=== PATIENT | male | born 1960 | race Caucasian/White ===

== ENCOUNTER 2016-07-25 17:30 | Emergency (ER) | payer OTHER ==
[~2016-07-25 17:30] MED LIST: CIPRO PO; FLAGYL PO; LISINOPRIL20 MG PO; NO MEDICATIONS
== END 2016-07-25 17:33 | disposition home or self-care (01) ==
LOC: CFTX 17:30
DX: M10.071 Idiopathic gout, right ankle and foot (principal); I10 Essential (primary) hypertension
CPT/HCPCS: 96372; 99283; J1885

== ENCOUNTER 2016-08-13 12:27 | Inpatient (IN) | payer OTHER ==
--- NOTE | ~2016-08-13 | CO ---
Unit #: [id number] #: [id number] Patient: JONATHAN BARROW [id number] [address] [address] [id number] Yolette MR#: [id number] NAME: JONATHAN BARROW ROOM: 569 Age: 56 Sex: M Admission Date: 08/13/2016 : 1960 Attending Physician: Hortencia Casey M.D. CONSULTATION REPORT CHIEF COMPLAINT Left knee pain. HISTORY OF PRESENT ILLNESS Mr. Barrow is a 56-year-old gentleman with a history of polysubstance abuse, who reports a 6 to 8 month history of left knee pain. He states he has pain with an attempted weightbearing and is unable to walk and he attempted weightbearing on the affected extremity causes pain along the medial aspect of the knee joint. Additionally, he does have shortness of breath with ambulation and exertional dyspnea. He has been admitted for positive troponins and non-ST elevation [place]. During his workup, he underwent an ultrasound to evaluate the left lower extremity for DVT, which was negative. I identified a Eastman cyst and Orthopedic consultation was requested. The patient is currently examined supine in his hospital bed. He is comfortable. He reports pain with ambulation, but no pain at rest. He is concerned this may have been gout. He has no knee pain with bicycling, which he states he does nearly daily. PAST MEDICAL HISTORY Polysubstance abuse, hypertension, coronary artery disease, hepatic steatosis, diverticulitis. PAST SURGICAL HISTORY None. HOME MEDICATIONS None. ALLERGIES No known drug allergies. SOCIAL HISTORY The patient uses methamphetamine and marijuana. Denies alcohol or tobacco use. He is not working. FAMILY HISTORY Noncontributory to the current illness. REVIEW OF SYSTEMS Ten systems reviewed and negative except with regard to musculoskeletal complaints and exertional dyspnea as noted above. Unit #: [id number] #: [id number] Patient: JONATHAN BARROW PHYSICAL EXAMINATION GENERAL APPEARANCE: A 56-year-old gentleman appearing older than stated age, in no acute distress. PSYCHIATRIC: Awake, alert, and oriented to person, place, time, and situation with normal range of mood and affect. CARDIAC: Regular rate and rhythm. PULMONARY: No increased work of breathing, symmetric chest rise. ABDOMEN: Nondistended. NEUROLOGIC: Intact motor and sensory function throughout. Normal L2 through S1 in the left lower extremity. VASCULAR: His foot is warm and well perfused. LYMPHATIC: There was no lymphedema. SKIN: There is no overlying erythema, contusion, or soft tissue swelling. MUSCULOSKELETAL: He has no knee joint effusion. He has full passive range of motion of the left knee. He has mild tenderness along with pes anserine bursa in medial joint line. DIAGNOSTIC STUDIES IMAGING STUDIES: 1. Plain film radiographs reviewed of the left knee demonstrate mild medial compartment joint osteoarthritis. 2. Ultrasound of the left lower extremity is reviewed demonstrates a Eastman cyst. IMPRESSION A 56-year-old gentleman with left knee pain secondary to osteoarthritis and a Eastman cyst and history of polysubstance abuse and current admission for non-ST elevation myocardial infarction. PLAN 1. Given the above issues, he has more pressing medical issues, currently including pending heart catheterization tomorrow. In the current time, there is no indication for any orthopedic intervention. He may follow up as an outpatient for corticosteroid injection into the left knee. 2. I have discussed with him that his Eastman cyst is likely related to his degenerative arthritis in his left knee. He is not going to be a candidate for management with NSAIDs given his current cardiac issues. 3. Follow up as an outpatient for possible corticosteroid injection postdischarge. Dictated by... Jim Paz M.D. ROME/maria g TD: 08/15/2016 01:33 JOB #: [id number] Unit #: [id number] #: [id number] Patient: JONATHAN BARROW CONSULTATION REPORT Page 1 of 1 X Jim Paz MD X CONSULTATION REPORT
--- NOTE | ~2016-08-13 | CO ---
Unit #: [id number] #: [id number] Patient: JONATHAN BARROW [id number] [address] [address] [id number] I MR#: [id number] NAME: JONATHAN BARROW ROOM: 569 Age: 56 Sex: M Admission Date: 08/13/2016 : 1960 Attending Physician: Hortencia Casey M.D. CONSULTATION REPORT REASON FOR CONSULTATION Chest pain. HISTORY OF PRESENT ILLNESS This is a 56-year-old white male who came to the emergency room because of a gout flare to his left great toe. The patient had a complaint of exertional dyspnea that has been ongoing for "a while." His dyspnea occurs when going up flights of stairs. He usually can ride his bicycle more than 15 miles. However, lately he has been unable to ride his bicycle more than 100 feet at a time because of dyspnea. He reports no chest pain, palpitations, or leg edema. The patient was admitted to this facility in 2014. He had a troponin that was elevated at 0.3. He was scheduled for a cardiac catheterization; however, on the day of the cardiac catheterization he left before it was done. In the emergency room, the patient was hypertensive with blood pressure of 187/100 mmHg. He states he has not been on any medications. He also complains of left knee pain and having difficulty with walking because of it. His troponin was elevated at 0.13. Electrocardiogram shows lateral ischemia. PAST MEDICAL HISTORY 1. Hypertension. 2. Diverticulosis. 3. Left lower lobe nodule. 4. Polysubstance abuse with methamphetamine and marijuana. 5. Former smoker. PAST SURGICAL HISTORY Back surgery. SOCIAL HISTORY The patient quit smoking more than four years ago. He uses marijuana on occasion. He also used methamphetamine one month ago. FAMILY HISTORY Negative for coronary artery disease. ALLERGIES No known allergies. HOME MEDICATIONS No current medications. Unit #: [id number] #: [id number] Patient: JONATHAN BARROW REVIEW OF SYSTEMS CONSTITUTIONAL: Negative for fever or chills. Has no weight gain or weight loss. HEENT: No headache, hearing or vision changes, or difficulty with swallowing. No dizziness. CARDIOVASCULAR: Has chest pain as described in the History of Present Illness. Denies palpitations. No paroxysmal nocturnal dyspnea or orthopnea. No syncope or near syncope. RESPIRATORY: Positive for exertional dyspnea. No cough or hemoptysis. GASTROINTESTINAL: No abdominal pain, nausea, or vomiting. No constipation or melena. EXTREMITIES: Negative for lower extremity edema. Complains of left knee pain. PHYSICAL EXAMINATION VITAL SIGNS: Blood pressure 171/101, heart rate 71, and temperature 97.5. GENERAL: This is a 56-year-old, obese, white male who is in no acute distress. NEUROLOGIC: He is awake, alert, and oriented. There are no focal weaknesses. NECK: Trachea is midline. No thyromegaly or lymphadenopathy. No jugular venous distention. HEART: S1 and S2 heart sounds are normal. No murmurs, rubs, or clicks. Regular rate and rhythm. LUNGS: Diminished breath sounds in both lungs bases. No rales or rhonchi. ABDOMEN: Soft and obese with bowel sounds present. No organomegaly. EXTREMITIES: Without leg edema. SKIN: Warm and dry. DIAGNOSTIC STUDIES LABORATORY: Hemoglobin 13.4, hematocrit 40.8, platelet count 152,000, and white count 10.6. Sodium 138, potassium 3.5, BUN 18, creatinine 0.9, and glucose 135. Troponin 0.13. Urine drug screen positive for marijuana and amphetamines. IMAGING: Chest x-ray shows no active disease. CARDIOLOGY: EKG shows normal sinus rhythm with a rate of 90 beats per minute with lateral wall ischemia. IMPRESSION 1. Acute coronary syndrome with exertional dyspnea. 2. Left knee pain of questionable etiology. 3. Probable coronary artery disease. 4. Uncontrolled hypertension. 5. Hypertensive heart disease. 6. Substance abuse with methamphetamine. PLAN 1. Cardiology was consulted for elevated troponin. The patient's dyspnea is most likely secondary to ischemic heart disease. Troponin is elevated but nondiagnostic. He has been advised to undergo cardiac catheterization to evaluate his coronary anatomy. It was explained in detail to the patient the risks and benefits. He is agreeable. 2. Will start on MARY JANE inhibitor, beta hitesh, aspirin, Lovenox, and nitrates. 3. Control blood pressure also with diuretics. Unit #: [id number] #: [id number] Patient: JONATHAN BARROW 4. Repeat EKG and troponin. 5. A 2D echocardiogram will be obtained to evaluate left ventricular systolic function. 6. Further recommendations pending the results of the cardiac catheterization. Thank you for allowing us to assist with the patient's care. Dictated by... Alonzo Calvin A.P.R.N. for Elmer Castillo/keyon TD: 08/15/2016 22:04 JOB #: [id number] CONSULTATION REPORT Page 1 of 1 X Alonzo Calvin APRN X CONSULTATION REPORT
--- NOTE | ~2016-08-13 | HP ---
Unit #: [id number] #: [id number] Patient: JONATHAN BARROW [id number] [address] [address] [id number] I MR#: [id number] NAME: JONATHAN BARROW ROOM: 09618 Age: 56 Sex: M Admission Date: 08/13/2016 : 1960 Attending Physician: Opal Jack M.D. Primary Care Physician: No Primary Care Physician HISTORY AND PHYSICAL CHIEF COMPLAINT Left knee and foot pain. HISTORY OF PRESENT ILLNESS The patient is a 56-year-old male with history of hypertension and does not follow regularly with medical doctors, presented to the emergency room complaining of the left knee and foot pain. The patient stated that the patient has been having pain for the last five months and presented to the emergency room concerning for the flareup of the gout. During ER triage, the patient was also complaining of exertional dyspnea. The patient was found to have uncontrolled blood pressure with a blood pressure of 117/110. The patient had a positive troponin with abnormal EKG. The patient has been admitted for the above reasons. The patient stated the patient has been having the exertional dyspnea for the last few months and is being admitted for the cardiac catheterization. The patient denies any fever, chills, trauma, nausea, vomiting, palpitations or dizziness. PAST MEDICAL HISTORY History of diverticulitis, hypertension, left lower lung nodules, hepatic steatosis. PAST SURGICAL HISTORY Back surgery. SOCIAL HISTORY The patient denies the use of tobacco or alcohol. He stated he has used meth since the age of 13 to one month ago. FAMILY HISTORY His father with alcoholism. ALLERGIES No known drug allergies. HOME MEDICATIONS None. REVIEW OF SYMPTOMS A 14-point review of symptoms performed and only pertinent positive findings as described above. Remaining are negative. PHYSICAL EXAMINATION GENERAL APPEARANCE: The patient is lying on a bed not in acute distress. VITAL SIGNS: Temperature 98.1. Pulse 103. Respiratory rate 16. Blood Unit #: [id number] #: [id number] Patient: JONATHAN BARROW pressure 177/110. Sating 99% at room air. HEENT: Head: Atraumatic, normocephalic. Pupils equal, round and reacting to light and accommodation. Extraocular movements are intact. Dry mucous membrane. NECK: Supple. No JVD. LUNGS: Decreased air entry at the bases. HEART: Regular rate and rhythm. ABDOMEN: Soft. Positive bowel sounds. EXTREMITIES: No cyanosis. No clubbing. The patient on the left knee and stated the pain at the back of the knee. NEUROLOGIC: Alert, awake, oriented. No gross focal motor deficit. DIAGNOSTIC STUDIES LABORATORY: Glucose 135, BUN 18, creatinine 0.9, sodium 138, potassium 3.5, chloride 107, bicarb 22, calcium 8.9, uric acid 8.9, calcium 8.4, magnesium 1.8, total protein 7.2, albumin 3.8, AST 24, ALT 25, alkaline phosphatase 84. INR one. Troponin 0.13. WBC 10.6, hemoglobin 13.4, hematocrit 40.8, platelets 152. Urine tox is positive for amphetamines and marijuana. UA shows trace leukocyte esterase. IMAGING: Chest x-ray is negative. The venous Doppler of the left lower extremity shows no superficial or deep vein thrombosis. Positive for Eastman's cyst and not ruptured. CARDIOVASCULAR: EKG shows normal sinus rhythm with a rate of 90 beats per minute and minimal voltage criteria for LVH and ST-T abnormalities in the lateral leads concerning for lateral ischemia. ASSESSMENT 1. Non-ST elevation [place]. 2. Uncontrolled blood pressure. 3. Left Eastman's cyst. 4. Drug overdose with amphetamines and marijuana. PLAN To admit the patient to the inpatient with telemetry. Continue with the serial troponins and Cardiology consult has been placed and recommended for the cardiac cath on Monday. Continue with aspirin, Lovenox, MARY JANE inhibitors, metoprolol, hydrochlorothiazide and nitro paste. Repeat the labs again in the morning and further recommendations to follow. Dictated by Elmer Choi TD: 08/13/2016 18:49 JOB #: [id number] Unit #: [id number] #: [id number] Patient: JONATHAN BARROW HISTORY AND PHYSICAL Page 1 of 1 X X HISTORY AND PHYSICAL
--- NOTE | ~2016-08-13 | EKG ---
PATIENT: JONATHAN BARROW UNIT #: [id number] Ventricular Rate: 90 BPM Atrial Rate: 90 BPM P-R Interval: 156 ms QRS Duration: 96 ms Q-T Interval: 386 ms QTC Calculation(Bezet): 472 ms P [place]: 4 degrees Calculated R [place]: -28 degrees Calculated T [place]: 78 degrees Diagnosis Line: Normal sinus rhythm Diagnosis Line: Minimal voltage criteria for LVH, may be normal Diagnosis Line: variant Diagnosis Line: ST and T wave abnormality, consider lateral ischemia Diagnosis Line: Abnormal ECG Diagnosis Line: When compared with ECG of 06-APR-2015 05:18, Diagnosis Line: No significant change was found Diagnosis Line: Confirmed by GUZMAN MARTINEZ MD ([id number]) on 08/15/2016 Diagnosis Line: 10:53:44 PM INTERPRETING MD: MICHLELE LI
--- NOTE | ~2016-08-13 | EKG ---
PATIENT: JONATHAN BARROW UNIT #: [id number] Ventricular Rate: 70 BPM Atrial Rate: 70 BPM P-R Interval: 138 ms QRS Duration: 98 ms Q-T Interval: 438 ms QTC Calculation(Bezet): 473 ms P [place]: 8 degrees Calculated R [place]: 2 degrees Calculated T [place]: 76 degrees Diagnosis Line: Normal sinus rhythm Diagnosis Line: Nonspecific T wave abnormality Diagnosis Line: Prolonged QT Diagnosis Line: Abnormal ECG Diagnosis Line: When compared with ECG of 14-AUG-2016 05:33, Diagnosis Line: Nonspecific T wave abnormality has replaced Diagnosis Line: inverted T waves in Lateral leads Diagnosis Line: Confirmed by ROSEANNE SINGH MD ([id number]) on 08/16/2016 Diagnosis Line: 10:23:57 PM INTERPRETING MD: FRANCISCO LI
--- NOTE | ~2016-08-13 | DS ---
Unit #: [id number] #: [id number] Patient: JONATHAN BARROW [id number] [address] [address] [id number] I MR#: [id number] NAME: JONATHAN BARROW ROOM: 569 Age: 56 Sex: M Admission Date: 08/13/2016 : 1960 Discharge Date: Attending Physician: Hortencia Casey M.D. Primary Care Physician: No Primary Care Physician DISCHARGE SUMMARY DISCHARGE DIAGNOSES 1. Chest pain with acute coronary syndrome. The patient had cardiac catheterization, coronaries normal. 2. Acute systolic heart failure, ejection fraction 45% with shortness of breath. 3. Hypertension, uncontrolled. 4. Polysubstance abuse with amphetamines and marijuana, advised to quit. 5. Left lower lobe nodule, needs followup outpatient. 6. Left knee Eastman's cyst. The patient will follow orthopedics as an outpatient. 7. Left foot gout, continue with Indomethacin. 8. Hyperlipidemia. CONSULTATIONS 1. Dr. Jim Paz. 2. Dr. Tanner. PROCEDURE Patient had cardiac cath which shows ejection fraction 45%, normal coronaries. ALLERGIES Hydralazine. DISCHARGE MEDICATIONS 1. Metoprolol 50 p.o. b.i.d. 2. Lisinopril 40 daily. 3. Aspirin 81 daily. 4. Norvasc 5 daily. 5. Nitroglycerin p.r.n. chest pain. 6. Lipitor 20 daily. 7. Indomethacin 75 mg p.o. daily. HOSPITALIZATION COURSE A 56 year old admitted because of chest pain and shortness of breath. Chest pain: Likely acute coronary syndrome. Cardiac cath is negative for any obstruction. Normal coronaries. Continue with aspirin, lisinopril, and beta hitesh. Shortness of breath: Likely acute systolic heart failure. Ejection fraction 45%. Compensated. Continue with lisinopril. Unit #: [id number] #: [id number] Patient: JONATHAN BARROW Left lower lobe nodule: The patient needs outpatient followup with his family physician. Polysubstance abuse: Advised to quit. Hypertension: Uncontrolled. Added lisinopril, metoprolol, and Norvasc. Prescriptions given. DISPOSITION Patient discharged home. FOLLOWUP 1. Follow with family physician in one week time. 2. Follow with Dr. Tanner in three to four weeks' time. Discharge time taken is 35 minutes. Dictated by... Elmer Lange TD: 08/16/2016 12:32 JOB #: [id number] DISCHARGE SUMMARY Page 1 of 1 X Hortencia Casey MD X DISCHARGE SUMMARY
--- NOTE | ~2016-08-13 | US85 ---
[facility] A Service of [facility] RADIOLOGY TEXT RESULTS PATIENT: JONATHAN BARROW LOCATION: [facility] 569-01 : 56 UNIT #: [id number] AGE: [address]: Hortencia Casey MD SEX: M ORDER DR: [id number] [facility] [address] [place], [place] [address] [id number] I MR#: [id number] Acc #: [id number] NAME: JONATHAN BARROW : 1960 SEX: M STUDY DATE/TIME: 08/13/2016 11:49 UNIT: [facility] ROOM: [facility] STUDY DESCRIPTION: US LE Veins Unilat or Ltd Stdy Attending Physician: Opal Jack M.D. Ordering Physician: Laura Calhoun M.D. Primary Care Physician: No Primary Care Physician MEDICAL IMAGING REPORT This report is preliminary unless electronic signature is present EXAM Left lower extremity duplex Doppler venous ultrasound. DATE OF EXAM 08/13/2016 COMPARISON None. INDICATIONS 56-year-old male with left leg pain and inability to walk on the leg for 6-months. FINDINGS Color flow is demonstrated in the left anterior tibial vein. There is color flow in the left posterior tibial and peroneal veins and these vessels are fully compressible. The left common femoral, greater saphenous, superficial femoral, proximal deep femoral, and popliteal veins are all fully compressible with normal color flow, waveform and flow direction. In the popliteal fossa, there is a fluid collection which measures approximately 1.3 cm x 1.4 cm x approximately 4 cm which communicates with the posterior knee joint. This is most consistent with a Eastman's cyst. There is no evidence of definite rupture on the current exam. IMPRESSION 1. Negative for deep or superficial venous thrombosis in the left lower extremity. 2. A 1.3 cm x 1.4 cm x 4 cm fluid collection in the popliteal fossa which communicates with the knee joint most in keeping with a Eastman's cyst. No evidence of rupture on this exam. [facility] A Service of [facility] RADIOLOGY TEXT RESULTS PATIENT: JONATHAN BARROW LOCATION: [facility] 569-01 : 56 UNIT #: [id number] AGE: [address]: Hortencia Casey MD SEX: M ORDER DR: Dictated by... Kirill Jamison M.D. THIS IS AN ELECTRONICALLY VERIFIED REPORT Kirill Jamison M.D. at 08/16/2016 12:58 AM SCOT/sandip TD: 08/13/2016 23:05 JOB #: [id number] MEDICAL IMAGING REPORT Page 1 of 1 COPY
--- NOTE | ~2016-08-13 | CR72 ---
[facility] A Service of [facility] RADIOLOGY TEXT RESULTS PATIENT: JONATHAN BARROW LOCATION: [facility] 569-01 : 56 UNIT #: [id number] AGE: [address]: Hortencia Casey MD SEX: M ORDER DR: [id number] [facility] [address] [facility] [place], [place] [address] [id number] I MR#: [id number] Acc #: [id number] NAME: JONATHAN BARROW : 1960 SEX: M STUDY DATE/TIME: 08/13/2016 11:10 UNIT: [facility] ROOM: [facility] STUDY DESCRIPTION: CR Chest Single View Portable Attending Physician: Opal Jack M.D. Ordering Physician: Laura Calhoun M.D. Primary Care Physician: No Primary Care Physician MEDICAL IMAGING REPORT This report is preliminary unless electronic signature is present EXAM Portable AP view of the chest COMPARISON April 05, 2015 June 22, 2008 INDICATIONS 56-year-old male with dyspnea with activity for 1 year. FINDINGS There may be mild cardiomegaly. Alternatively this could be artifactually accentuated by low lung volumes and portable technique. There are left hilar calcified lymph nodes. There is slightly increased band-like opacities in the right lower lobe which could reflect atelectasis or developing pneumonia. The left lung is now clear. No significant pleural effusion. No pneumothorax. IMPRESSION 1. Minimal opacities in the right lung base which appears slightly more prominent than on the most recent comparison. These are favored to be stable as compared to 2009 and most consistent with normal bronchovascular structures and/or minimal atelectasis. Clinical correlation is recommended. No pleural effusion. 2. Questionable mild cardiomegaly. No evidence of pulmonary edema. Dictated by... Kirill Jamison M.D. THIS IS AN ELECTRONICALLY VERIFIED REPORT Kirill Jamison M.D. at 08/16/2016 12:55 AM SCOT/craig TD: 08/13/2016 22:33 [facility] A Service of [facility] RADIOLOGY TEXT RESULTS PATIENT: JONATHAN BARROW LOCATION: [facility] 569-01 : 56 UNIT #: [id number] AGE: [address]: Hortencia Casey MD SEX: M ORDER DR: JOB #: [id number] MEDICAL IMAGING REPORT Page 1 of 1 COPY
--- NOTE | ~2016-08-13 | CR169 ---
[facility] A Service of [facility] RADIOLOGY TEXT RESULTS PATIENT: JONATHAN BARROW LOCATION: [facility] 569 : 56 UNIT #: [id number] AGE: [address]: Hortencia Casey MD SEX: M ORDER DR: [id number] [place] [id number] [facility]. [place], [place] [address] [id number] I MR#: [id number] Acc #: [id number] NAME: JONATHAN BARROW : 1960 SEX: M STUDY DATE/TIME: 08/13/2016 11:11 UNIT: [facility] ROOM: [facility] STUDY DESCRIPTION: CR Knee 2 Views Lt Attending Physician: Opal Jack M.D. Ordering Physician: Laura Calhoun M.D. Primary Care Physician: No Primary Care Physician MEDICAL IMAGING REPORT This report is preliminary unless electronic signature is present EXAM Left knee, 2 views COMPARISON None INDICATIONS A 48-year-old male with left knee pain for 2 weeks. History of gout. FINDINGS There is mild osteophyte formation at the articulation of the fibular head and proximal tibia. There is no suprapatellar effusion. No osseous erosion. Bones are anatomically aligned. No acute fracture. IMPRESSION 1. Minimal osteophyte formation at the junction of the fibular head and the lateral tibial metaphysis of uncertain clinical significance. 2. Prepatellar soft tissue thickening, uncertain acuity. This could represent post-traumatic edema or cellulitis or possibly a bursitis. Not mentioned specifically in the body of the report, there is questionable small suprapatellar effusion. Dictated by... Kirill Jamison M.D. THIS IS AN ELECTRONICALLY VERIFIED REPORT Kirill Jamison M.D. at 08/16/2016 12:56 AM Silvina TD: 08/13/2016 22:29 [facility] A Service [facility] RADIOLOGY TEXT RESULTS PATIENT: JONATHAN BARROW LOCATION: [facility] 569 : 56 UNIT #: [id number] AGE: [address]: Hortencia Casey MD SEX: M ORDER DR: JOB #: [id number] MEDICAL IMAGING REPORT Page 1 of 1 COPY
--- NOTE | ~2016-08-13 | EKG ---
PATIENT: JONATHAN BARROW UNIT #: [id number] Ventricular Rate: 71 BPM Atrial Rate: 71 BPM P-R Interval: 140 ms QRS Duration: 94 ms Q-T Interval: 426 ms QTC Calculation(Bezet): 462 ms P [place]: 11 degrees Calculated R [place]: -26 degrees Calculated T [place]: 124 degrees Diagnosis Line: Normal sinus rhythm Diagnosis Line: Left ventricular hypertrophy with repolarization Diagnosis Line: abnormality Diagnosis Line: Abnormal ECG Diagnosis Line: When compared with ECG of 13-AUG-2016 11:16, Diagnosis Line: (unconfirmed) Diagnosis Line: T wave inversion more evident in Lateral leads Diagnosis Line: Confirmed by ROSEANNE SINGH MD ([id number]) on 08/14/2016 Diagnosis Line: 7:32:06 AM INTERPRETING MD: FRANCISCO LI
--- NOTE | ~2016-08-13 | EKG ---
PATIENT: JONATHAN BARROW UNIT #: [id number] Ventricular Rate: 69 BPM Atrial Rate: 69 BPM P-R Interval: 148 ms QRS Duration: 94 ms Q-T Interval: 412 ms QTC Calculation(Bezet): 441 ms P [place]: 0 degrees Calculated R [place]: -32 degrees Calculated T [place]: 125 degrees Diagnosis Line: Normal sinus rhythm Diagnosis Line: Left axis deviation Diagnosis Line: T wave abnormality, consider lateral ischemia Diagnosis Line: Abnormal ECG Diagnosis Line: When compared with ECG of 13-AUG-2016 19:14, Diagnosis Line: (unconfirmed) Diagnosis Line: T wave inversion more evident in Lateral leads Diagnosis Line: Confirmed by NEIL ARAUJO MD ([id number]) on Diagnosis Line: 08/14/2016 2:20:00 PM INTERPRETING MD: QUIN
[2016-08-13 11:19] LABS: BASOPHIL# 0.1 X10e3 (0-0.3); BASOPHIL% 0.5 % (0-2.5); EOSINOPHIL# 0.2 X10e3 (0-0.7); HEMATOCRIT 40.8 % (38.0-50.0); HEMOGLOBIN 13.4 gm/dL (13.0-16.0); LYMPHOCYTE# 2.3 X10e3 (1.0-3.5); LYMPHOCYTE% 21.8 % (17.0-45.0); MEAN CELL VOLUME 84.2 FL (83-96); MEAN CORPUSCULAR HEMOGLOBIN 27.6 PG (28-34); MEAN CORPUSCULAR HGB CONC 32.7 g/dL (30-36); MEAN PLATELET VOLUME 11.1 FL (6.5-11.5); MONOCYTE# 1.2 X10e3 (0-1.0); MONOCYTE% 11.7 % (3.0-12.0); NEUTROPHIL# 6.8 X10e3 (1.5-7.1); PLATELET COUNT 152 X10e3 (140-420); RED BLOOD COUNT 4.85 X10e (3.90-5.60); RED CELL DISTRIBUTION WIDTH 14.6 % (11.0-15.5); WHITE BLOOD COUNT 10.6 X10e3 (4.0-10.5)
[2016-08-13 11:21] LABS: DIFF IND NO
[2016-08-13 11:36] LABS: PARTIAL THROMBOPLASTIN TIME 26.8 SECONDS (23.5-31.3); PROTHROMBIN TIME (PATIENT) 10.8 SECONDS (9.6-11.5)
[2016-08-13 11:42] LABS: ALBUMIN SERUM 3.8 g/dL (3.5-5.0); BILIRUBIN, DIRECT 0.1 mg/dL (0.0-0.2); BILIRUBIN,INDIRECT 0.2 mg/dL (0.0-0.9); BILIRUBIN,TOTAL 0.3 mg/dL (0.2-2.0); CALCIUM SERUM 8.4 mg/dL (8.4-10.2); CREATININE SERUM 0.9 mg/dL (0.6-1.4); GLOM FILT RATE Estimated 93.8 mL/min (>60); POTASSIUM 3.5 mmol/L (3.5-5.1); PROTEIN TOTAL SERUM 7.2 g/dL (6.0-8.3)
[2016-08-13 11:43] LABS: POC - CKMB 2.6 ng/mL (0.0-7.9); POC - TROPONIN 0.14 ng/mL (<=0.05)
[2016-08-13 13:31] LABS: POC - CKMB 2.4 ng/mL (0.0-7.9); POC - TROPONIN 0.13 ng/mL (<=0.05)
[2016-08-13 14:29] LABS: URINE SOURCE CLEAN CATCH
[2016-08-13 14:37] LABS: URINE APPEARANCE CLEAR; URINE BILIRUBIN NEG (NEG); URINE BLOOD NEG (NEG); URINE COLOR YELLOW; URINE GLUCOSE NEG (NEG); URINE KETONE NEG (NEG); URINE LEUKOCYTE ESTERASE TRACE (NEG); URINE NITRATE NEG (NEG); URINE PROTEIN NEG (NEG); URINE SPECIFIC GRAVITY 1.027 (1.003-1.035)
[2016-08-13 14:42] LABS: URBCS1 AUWI 0-2 /[HPF] (0-2); URINE BACTERIA AUWI NEG (NEGATIVE); URINE SQUAMOUS EPITHELIAL CELL NONE SEEN /[HPF]; UWBCS1 AUWI 0-2 (0-5)
[2016-08-13 14:47] LABS: CULTURE INDICATED? NO
[2016-08-13 14:48] LABS: AMPHETAMINE POS (NEG); BARBITURATES NEG (NEG); BENZODIAZEPINES NEG (NEG); COCAINE NEG (NEG); MARIJUANA POS (NEG); OPIATES NEG (NEG); TRICYCLIC ANTIDEPRESSANTS NEG (NEG); U METHADONE NEG (NEG)
[2016-08-13 20:47] LABS: %MB 3.1 % (0.0-4.0); MB 3.6 ng/ml
[2016-08-14 05:33] LABS: %MB 3.7 % (0.0-4.0); MB 3.3 ng/ml
[2016-08-14 06:31] LABS: BASOPHIL% 0.3 % (0-2.5); EOSINOPHIL# 0.3 X10e3 (0-0.7); EOSINOPHIL% 3.4 % (0.0-7.0); HEMATOCRIT 41.1 % (38.0-50.0); HEMOGLOBIN 13.4 gm/dL (13.0-16.0); LYMPHOCYTE# 2.9 X10e3 (1.0-3.5); LYMPHOCYTE% 28.9 % (17.0-45.0); MEAN CELL VOLUME 84.9 FL (83-96); MEAN CORPUSCULAR HEMOGLOBIN 27.6 PG (28-34); MEAN CORPUSCULAR HGB CONC 32.5 g/dL (30-36); MEAN PLATELET VOLUME 11.7 FL (6.5-11.5); MONOCYTE# 1.3 X10e3 (0-1.0); MONOCYTE% 12.5 % (3.0-12.0); NEUTROPHIL# 5.5 X10e3 (1.5-7.1); NEUTROPHIL% 54.9 % (40-75); PLATELET COUNT 155 X10e3 (140-420); RED BLOOD COUNT 4.84 X10e (3.90-5.60); RED CELL DISTRIBUTION WIDTH 14.3 % (11.0-15.5); WHITE BLOOD COUNT 10.1 X10e3 (4.0-10.5)
[2016-08-14 06:56] LABS: BUN/CREATININE RATIO 18.88; CALCIUM SERUM 8.8 mg/dL (8.4-10.2); CREATININE SERUM 0.9 mg/dL (0.6-1.4); GLOM FILT RATE Estimated 93.8 mL/min (>60)
[2016-08-14 07:00] LABS: DIFF IND NO
[2016-08-15 08:26] LABS: HEMATOCRIT 45.8 % (38.0-50.0); HEMOGLOBIN 14.9 gm/dL (13.0-16.0); MEAN CELL VOLUME 84.7 FL (83-96); MEAN CORPUSCULAR HEMOGLOBIN 27.6 PG (28-34); MEAN CORPUSCULAR HGB CONC 32.6 g/dL (30-36); RED BLOOD COUNT 5.41 X10e (3.90-5.60); RED CELL DISTRIBUTION WIDTH 14.6 % (11.0-15.5); WHITE BLOOD COUNT 10.8 X10e3 (4.0-10.5)
[2016-08-15 08:28] LABS: PROTHROMBIN TIME (PATIENT) 10.2 SECONDS (9.6-11.5)
[2016-08-15 08:53] LABS: ALBUMIN SERUM 3.6 g/dL (3.5-5.0); BILIRUBIN,TOTAL 0.4 mg/dL (0.2-2.0); GLOM FILT RATE Estimated 82.6 mL/min (>60); MAGNESIUM 1.9 mg/dL (1.6-3.0); POTASSIUM 3.9 mmol/L (3.5-5.1); PROTEIN TOTAL SERUM 7.7 g/dL (6.0-8.3)
[2016-08-16] MEDS ORDERED: ACETAMINOPHEN325 MG PO (13:16)
[2016-08-16] MEDS ORDERED: LOPRESSOR PO (13:17)
[2016-08-16] MEDS ORDERED: CHEWABLE ASPIRI81 MG PO (13:18)
[2016-08-16] MEDS ORDERED: PRINIVIL40 MG PO (13:18)
[2016-08-16] MEDS ORDERED: NORVASC PO (13:19)
[2016-08-16] MEDS ORDERED: LIPITOR20 MG PO (13:20)
[2016-08-16] MEDS ORDERED: INDOCIN SR75 MG PO (13:21)
[2016-08-16] MEDS ORDERED: NITROSTAT0.4 MG SL (13:22)
== END 2016-08-16 16:43 | disposition home or self-care (01) | DRG 286 ==
LOC: CED 12:27 → CEDOF 13:58 → C5C 22:04
PROVIDERS: Internal Medicine; Internal Medicine Cardiovascular Disease; Nurse Practitioner; Student in an Organized Health Care Education/Training Program
PROC: B246YZZ Ultrasonography of Right and Left Heart using Other Contrast (ICD-10-PCS; principal; 2016-08-13)
PROC: 4A023N7 Measurement of Cardiac Sampling and Pressure, Left Heart, Percutaneous Approach (ICD-10-PCS; 2016-08-15)
PROC: B211YZZ Fluoroscopy of Multiple Coronary Arteries using Other Contrast (ICD-10-PCS; 2016-08-15)
PROC: B215YZZ Fluoroscopy of Left Heart using Other Contrast (ICD-10-PCS; 2016-08-15)
DX: I20.0 Unstable angina (principal); I50.21 Acute systolic (congestive) heart failure; I10 Essential (primary) hypertension; Z87.891 Personal history of nicotine dependence; M71.22 Synovial cyst of popliteal space [Baker], left knee; F15.10 Other stimulant abuse, uncomplicated; F12.10 Cannabis abuse, uncomplicated; E66.9 Obesity, unspecified; Z81.1 Family history of alcohol abuse and dependence; R91.1 Solitary pulmonary nodule; Z68.31 Body mass index [BMI] 31.0-31.9, adult; M10.9 Gout, unspecified
CPT/HCPCS: 36415; 71010; 73560; 80048; 80053; 80061; 80076; 80307; 81003; 82550; 82553; 83735; 84443; 84484; 84550; 85025; 85027; 85610; 85730; 93005; 93306; 93971; 96372; 99285; C1769; C1887; C1894; J1644; J1650; J2250; J3010